=== PATIENT | male | born 1935 | race Caucasian/White ===

== ENCOUNTER 2016-10-17 13:19 | Outpatient (CLI) | payer MEDICARE, OTHER | END 2016-10-17 13:20 | disposition home or self-care (01) | DX: R73.9 Hyperglycemia, unspecified (principal); I10 Essential (primary) hypertension; E78.5 Hyperlipidemia, unspecified ==

== ENCOUNTER 2017-02-28 08:00 | Outpatient (CLI) | payer MEDICARE, OTHER | END 2017-02-28 08:01 | disposition home or self-care (01) | DX: K52.9 Noninfective gastroenteritis and colitis, unspecified (principal); D64.9 Anemia, unspecified ==

== ENCOUNTER 2017-03-04 08:00 | Outpatient (CLI) | payer MEDICARE, OTHER | END 2017-03-04 08:01 | disposition home or self-care (01) | LOC: LAB.WCP 08:00 | PROVIDERS: ATTEND Family Medicine | DX: E87.5 Hyperkalemia (principal) | CPT/HCPCS: 36415; 84132 ==

== ENCOUNTER 2017-03-06 16:07 | Outpatient (CLI) | payer MEDICARE, OTHER ==
--- NOTE | 2017-03-07 12:15 | Ultrasound Report ---
ABDOMINAL ULTRASOUND: 03/07/2017 CLINICAL INDICATION: Diarrhea, pain. TECHNIQUE: Real-time scanning was performed with franchise sales representative static images obtained. FINDINGS: The liver measures 14.2 cm. Hepatic echogenicity is normal. No intrahepatic biliary dila tation or focal parenchymal lesion is present. The common bile duct measures 4 mm. The gallbladder is normal, as is the visualized pancreas. The right kidney measures 10.3 cm, and the left kidney chitra sures 9.5 cm. No focal renal lesion or hydronephrosis is appreciated. The spleen measures 7.3 cm, a nd appears unremarkable. The abdominal aorta is normal in caliber throughout. The inferior vena cav a is unremarkable. No free fluid is present. IMPRESSION: NORMAL ABDOMINAL ULTRASOUND. JOB #: [id number] EXT JOB #:[id number]
== END 2017-03-06 16:08 | disposition home or self-care (01) ==
LOC: DI 16:07
PROVIDERS: ATTEND Family Medicine
DX: K52.9 Noninfective gastroenteritis and colitis, unspecified (principal)
CPT/HCPCS: 76700

== ENCOUNTER 2017-04-09 08:00 | Outpatient (CLI) | payer MEDICARE, OTHER ==
[2017-04-09 20:16] LABS: CALCIUM 9.1 mg/dL (8.5-10.3); CREATININE 2.2 mg/dL (0.6-1.2); POTASSIUM 5.1 mmol/L (3.5-5.0)
== END 2017-04-09 08:01 | disposition home or self-care (01) ==
LOC: LAB.WCP 08:00
PROVIDERS: ATTEND Family Medicine
DX: K52.9 Noninfective gastroenteritis and colitis, unspecified (principal); I10 Essential (primary) hypertension
CPT/HCPCS: 36415; 80048

== ENCOUNTER 2017-11-04 09:20 | Outpatient (CLI) | payer MEDICARE, OTHER ==
[2017-11-04 13:10] LABS: BASOPHILS % (AUTO) 0.6 %; EOSINOPHILS # (AUTO) 0.3 10^3/uL (0.0-0.7); EOSINOPHILS % (AUTO) 4.3 %; HGB - HEMOGLOBIN 11.3 g/dL (14.0-18.0); LYMPHOCYTES # (AUTO) 1.2 10^3/uL (1.5-3.5); LYMPHOCYTES % (AUTO) 17.6 %; MEAN CORPUSCULAR HGB CONC 33.4 g/dL (32.0-36.0); MEAN CORPUSCULAR VOLUME 98.8 fL (80.0-94.0); MEAN PLATELET VOLUME 9.9 fL (7.4-11.4); MONOCYTES # (AUTO) 0.9 10^3/uL (0.0-1.0); MONOCYTES % (AUTO) 13.4 %; NEUTROPHILS # (AUTO) 4.4 10^3/uL (1.5-6.6); NEUTROPHILS % (AUTO) 64.1 %; PLT - PLATELET COUNT 178 10^3/uL (130-450); RED BLOOD COUNT 3.42 10^6/uL (4.70-6.10); RED CELL DISTRIBUTION WIDTH 14.4 % (12.0-15.0); WHITE BLOOD COUNT 6.8 x10^3/uL (4.8-10.8)
[2017-11-04 14:13] LABS: CALCIUM 8.7 mg/dL (8.5-10.3); CREATININE 1.9 mg/dL (0.6-1.2)
[2017-11-04 14:20] LABS: HEMOGLOBIN A1C 0.46 g/dL; HEMOGLOBIN A1C % 5.7 % (4.6-6.2)
== END 2017-11-04 09:21 | disposition home or self-care (01) ==
LOC: LAB.WCP 09:20
PROVIDERS: ATTEND Family Medicine
DX: E87.5 Hyperkalemia (principal); I12.9 Hypertensive chronic kidney disease with stage 1 through stage 4 chronic kidney disease, or unspecified chronic kidney disease; N18.9 Chronic kidney disease, unspecified; R73.9 Hyperglycemia, unspecified
CPT/HCPCS: 36415; 80048; 83036; 85025

== ENCOUNTER 2017-11-07 08:56 | Outpatient (CLI) | payer MEDICARE, OTHER ==
[2017-11-07 13:21] LABS: BASOPHILS % (AUTO) 0.4 %; EOSINOPHILS # (AUTO) 0.2 10^3/uL (0.0-0.7); EOSINOPHILS % (AUTO) 3.6 %; HGB - HEMOGLOBIN 11.8 g/dL (14.0-18.0); LYMPHOCYTES % (AUTO) 15.9 %; MEAN CORPUSCULAR HEMOGLOBIN 33.1 pg (27.0-31.0); MEAN CORPUSCULAR HGB CONC 33.6 g/dL (32.0-36.0); MEAN CORPUSCULAR VOLUME 98.4 fL (80.0-94.0); MEAN PLATELET VOLUME 9.8 fL (7.4-11.4); MONOCYTES # (AUTO) 0.8 10^3/uL (0.0-1.0); MONOCYTES % (AUTO) 12.8 %; NEUTROPHILS # (AUTO) 4.3 10^3/uL (1.5-6.6); NEUTROPHILS % (AUTO) 67.3 %; PLT - PLATELET COUNT 176 10^3/uL (130-450); RED BLOOD COUNT 3.58 10^6/uL (4.70-6.10); RED CELL DISTRIBUTION WIDTH 14.5 % (12.0-15.0); WHITE BLOOD COUNT 6.4 x10^3/uL (4.8-10.8)
[2017-11-07 13:50] LABS: FERRITIN 111.4 ng/mL (23.9-336.2)
[2017-11-07 14:03] LABS: % IRON SATURATION 31 % (20-50); IRON 80 ug/dL (45-182); TOTAL IRON BINDING CAPACITY 255 ug/dL (250-450); TRANSFERRIN 182 mg/dL (180-329)
== END 2017-11-07 08:57 ==
LOC: LAB.WCP 08:56
PROVIDERS: ATTEND Family Medicine
DX: D64.9 Anemia, unspecified (principal)
CPT/HCPCS: 36415; 82607; 82728; 83540; 84466; 85025

== ENCOUNTER 2018-06-19 18:12 | Outpatient (CLI) | payer MEDICARE, OTHER ==
[2018-06-19 19:00] LABS: CALCIUM 8.4 mg/dL (8.5-10.3); CREATININE 6.6 mg/dL (0.6-1.2)
== END 2018-06-19 18:13 | disposition home or self-care (01) ==
LOC: LAB 18:12
PROVIDERS: ATTEND Family Medicine
DX: N18.9 Chronic kidney disease, unspecified (principal)
CPT/HCPCS: 36415; 80048

== ENCOUNTER 2018-06-20 09:24 | Emergency (ER) | payer MEDICARE, OTHER ==
--- NOTE | 2018-06-20 09:50 | ED Physician Documentation ---
History of Present Illness - Stated complaint Stated Complaint: SIDE PX - Additonal information Additional information: hx from pt EMR and call from PMD 83 male recent hematuria and UTI txed with augmentin then changed to doxy based on culture results creat from 1.9-4.4 and lasix was stopped urinary sx better - his making urine not on NSAIDS but now creat 6.[address] Nova spoke to nephrology Dr Partida who advised that pt come to ED for imaging - his number is pt sytates he feels fine now - no fever cough CP soa abd pain flank pain NVD bloody black BM has int had low RLQ pain but not right now Review of Systems Constitutional: reports: Fever (initially not now). denies: Chills Throat: denies: Sore throat Cardiac: denies: Chest pain / pressure Respiratory: denies: Dyspnea GI: reports: Nausea, Vomiting (initially not now). denies: Abdominal Pain Musculoskeletal: denies: Back pain Endocrine: denies: Easy bruising / bleeding Immunocompromised: denies: Immunocompromised PD PAST MEDICAL HISTORY - Past Surgical History General: Hiatal hernia repair HEENT: Cataracts - Present Medications Home Medications: Ambulatory Orders Medication Instructions Recorded Confirmed Aspirin 81 mg PO 06/20/18 06/20/18 Calcium Citrate 06/20/18 Clonidine HCl [Clonidine HCl ER] 0.1 mg PO 06/20/18 Donepezil HCl 10 mg PO 06/20/18 Furosemide 40 mg PO 06/20/18 Krill/[place]-3/Dha/Epa/Lipids 1 each PO 06/20/18 [Krill Oil 350 mg Softgel] Lisinopril 20 mg PO 06/20/18 Magnesium Oxide [Magnesium] 400 mg PO 06/20/18 Metoprolol Succinate 100 mg PO 06/20/18 Omeprazole [PriLOSEC] 20 mg PO DAILY 06/20/18 06/20/18 QUEtiapine [SEROquel] 25 mg PO QPM 06/20/18 06/20/18 Simvastatin 20 mg PO 06/20/18 Tamsulosin [Flomax] 0.4 mg PO DAILY 06/20/18 06/20/18 - Allergies Allergies/Adverse Reactions: Allergies Allergy/AdvReac Type Severity Reaction Status Date / Time No Known Drug Allergies Allergy Verified 07/23/16 23:14 - Social History Does the pt smoke?: No Smoking Status: Never smoker Does the pt drink ETOH?: Yes Does the pt have substance abuse?: No - Immunizations Immunizations are current?: No PD ED PE NORMAL - Vitals Vital signs reviewed: Yes - General General: Alert and oriented X 3 - HEENT HEENT: Atraumatic - Neck Neck: Supple, no meningeal sign - Cardiac Cardiac: RRR - Respiratory Respiratory: No respiratory distress, Clear bilaterally - Abdomen Abdomen: Soft, Non tender - Back Back: No CVA TTP - Derm Derm: Normal color - Extremities Extremities: No deformity - Neuro Neuro: Alert and oriented X 3 Results - Vitals Vitals: Vital Signs - 24 hr 06/20/18 06/20/18 06/20/18 09:52 10:30 11:30 Temperature 36.8 C Heart Rate 51 L 48 L 49 L Respiratory 21 18 15 Rate Blood Pressure 163/90 H 162/85 H 180/88 H O2 Saturation 100 100 99 06/20/18 06/20/18 06/20/18 12:30 13:30 14:30 Temperature Heart Rate 48 L 49 L 48 L Respiratory 18 20 18 Rate Blood Pressure 191/82 H 194/85 H 176/83 H O2 Saturation 99 99 98 06/20/18 15:30 Temperature Heart Rate 50 L Respiratory 18 Rate Blood Pressure 180/81 H O2 Saturation 99 Oxygen O2 Source Room air - EKG (time done) 1024 Rate: Rate (enter#) (54) Rhythm: NSR Intervals: Normal HI (short no delta wave). No: Wide QRS - Labs Labs: Laboratory Tests 06/20/18 06/20/18 06/20/18 10:30 10:30 11:25 WBC 8.1 RBC 3.01 L Hgb 10.1 L Hct 29.6 L MCV 98.2 H MCH 33.4 H MCHC 34.1 RDW 13.8 Plt Count 275 MPV 8.5 Neut # (Auto) 6.1 Lymph # (Auto) 0.8 L [place] # (Auto) 1.0 Eos # (Auto) 0.1 Baso # (Auto) 0.1 Absolute Nucleated RBC 0.00 Nucleated RBC % 0.0 Sodium 140 Potassium 5.5 H Chloride 114 H Carbon Dioxide 17 L Anion Gap 9.0 BUN 61 H Creatinine 6.6 H Estimated GFR (MDRD) 8 L Glucose 112 H Calcium 8.2 L Total Bilirubin 0.2 AST 16 ALT 15 Alkaline Phosphatase 56 Total Protein 6.0 L Albumin 2.8 L Globulin 3.2 Albumin/Globulin Ratio 0.9 L Lipase 48 Urine Color YELLOW Urine Clarity HAZY Urine pH 6.0 Ur Specific [place] [employer] 1.025 Urine Protein >=300 Urine Glucose (UA) NEGATIVE Urine Ketones NEGATIVE Urine Occult Blood LARGE H Urine Nitrite NEGATIVE Urine Bilirubin NEGATIVE Urine Urobilinogen 0.2 (NORMAL) Ur Leukocyte Esterase NEGATIVE Urine RBC TNTC H Urine WBC 6-10 H Ur Squamous Epith Cells RARE Squamous Urine Bacteria Rare Urine Casts 3-5 Hyaline Casts Ur Microscopic Review INDICATED Urine Culture Comments INDICATED - Rads (name of study) CT AP Radiology: See rad report (no stones, no hydro, bladder stranding c/w cystitis, diverticulosis, inguinal hernias, age indet L3 comp fx, ) PD MEDICAL DECISION MAKING - ED course ED course: EKG with nl QRS - will wait on labs before starting tx for hyperK labs back - creat is 6.6, but K only 5.5 and no EKG changes - no need for roxy gent meds beside kayexalate acute renal insuff - etiology unclear - no obstructive process, diuretic have been dced, no NSAIDS, bactrim etc making urine K not dangerous will d/w nephrology - [facility] with neph advice d/w Dr Partida, given to easily identifiable reversible cause there is a good chance this may worsen, recommends pt be transferred to tertiary care facility w here biopsy and dialysis if needed are available Prov [facility] no beds [facility] beds - spoke to hospitalist and nephrology there and pt is accepted in transfer - Sepsis Event Vital Signs: Vital Signs - 24 hr 06/20/18 06/20/18 06/20/18 09:52 10:30 11:30 Temperature 36.8 C Heart Rate 51 L 48 L 49 L Respiratory 21 18 15 Rate Blood Pressure 163/90 H 162/85 H 180/88 H O2 Saturation 100 100 99 06/20/18 06/20/18 06/20/18 12:30 13:30 14:30 Temperature Heart Rate 48 L 49 L 48 L Respiratory 18 20 18 Rate Blood Pressure 191/82 H 194/85 H 176/83 H O2 Saturation 99 99 98 06/20/18 15:30 Temperature Heart Rate 50 L Respiratory 18 Rate Blood Pressure 180/81 H O2 Saturation 99 Oxygen O2 Source Room air Departure - Departure Disposition: 02 Transfer Acute Care Hosp Clinical Impression: Hyperkalemia Renal failure Qualifiers: Renal failure chronicity: acute Acute renal failure type: unspecified Qualified Code(s): N17.9 - Acute kidney failure, unspecified Condition: Fair Discharge Date/Time: 06/20/18 16:07
[2018-06-20 10:41] LABS: BASOPHILS # (AUTO) 0.1 10^3/uL (0.0-0.1); BASOPHILS % (AUTO) 0.8 %; EOSINOPHILS # (AUTO) 0.1 10^3/uL (0.0-0.7); EOSINOPHILS % (AUTO) 1.8 %; HGB - HEMOGLOBIN 10.1 g/dL (14.0-18.0); LYMPHOCYTES # (AUTO) 0.8 10^3/uL (1.5-3.5); LYMPHOCYTES % (AUTO) 9.6 %; MEAN CORPUSCULAR HEMOGLOBIN 33.4 pg (27.0-31.0); MEAN CORPUSCULAR HGB CONC 34.1 g/dL (32.0-36.0); MEAN CORPUSCULAR VOLUME 98.2 fL (80.0-94.0); MEAN PLATELET VOLUME 8.5 fL (7.4-11.4); MONOCYTES % (AUTO) 11.9 %; NEUTROPHILS # (AUTO) 6.1 10^3/uL (1.5-6.6); NEUTROPHILS % (AUTO) 75.9 %; PLT - PLATELET COUNT 275 10^3/uL (130-450); RED BLOOD COUNT 3.01 10^6/uL (4.70-6.10); RED CELL DISTRIBUTION WIDTH 13.8 % (12.0-15.0); WHITE BLOOD COUNT 8.1 x10^3/uL (4.8-10.8)
--- NOTE | 2018-06-20 10:50 | CT Report ---
Reason: hematuria, creat 1.9 -> 6.6 Procedure Date: 06/20/2018 Accession Number: [id number] / [id number] Procedure: CT - Abdomen/Pelvis W/O CPT Code: FULL RESULT: EXAM: CT ABDOMEN AND PELVIS EXAM DATE: 06/20/2018 10:08 AM. CLINICAL HISTORY: Hematuria. COMPARISONS: None. TECHNIQUE: Routine helical CT imaging was performed through the abdomen and pelvis. IV contrast: . Enteric contrast: No. Reconstructions: Coronal and sagittal. In accordance with CT protocol optimization, one or more of the following dose reduction techniques were utilized for this exam: automated exposure control, adjustment of mA and/or KV based on patient size, or use of iterative reconstructive technique. FINDINGS: Lung Bases: Tiny calcified and noncalcified pulmonary nodules are seen in the lung bases measuring 2-3 mm. Solid organs: Noncontrast imaging of the solid organs demonstrates no acute findings including no nephrolithiasis or hydronephrosis. Gallbladder/Bile Ducts: Unremarkable. Peritoneal Cavity/Bowel: There is moderate predominantly sigmoid diverticulosis without evidence of diverticulitis. There is no obstruction or ileus. No free fluid or free air. The appendix is well visualized and normal. Pelvic Organs: The bladder is partly decompressed. Some minor fat stranding is seen surrounding the bladder (image 67, series 3). No significant bladder wall thickening or stones are demonstrated. A small fat-containing right inguinal hernia is seen. Trace fluid is seen in the hernia sac. Vasculature: No aneurysms or other significant abnormality. Bones: An age-indeterminate mild compression fracture deformity is seen at L3. Other: None. IMPRESSION: 1. No nephrolithiasis or hydronephrosis. 2. Minor stranding surrounding the bladder. Correlate for cystitis. 3. Moderate colonic diverticulosis without diverticulitis. 4. Small fat and fluid containing right inguinal hernia. 5. Age-indeterminate mild compression fracture at L3. RADIA
[2018-06-20 10:54] LABS: ALBUMIN 2.8 g/dL (3.2-5.5); ALBUMIN/GLOBULIN RATIO 0.9 (1.0-2.2); BILIRUBIN,TOTAL 0.2 mg/dL (0.2-1.0); CALCIUM 8.2 mg/dL (8.5-10.3); CREATININE 6.6 mg/dL (0.6-1.2)
[2018-06-20] MEDS ORDERED: SODIUM POLYSTYRENE SULFONATE 15 GM/60 ML BOTTLE PO STA (11:22)
[2018-06-20 11:39] LABS: BILIRUBIN,URINE NEGATIVE (NEGATIVE); GLUCOSE, URINE (UA) NEGATIVE (NEGATIVE); KETONES,URINE (UA) NEGATIVE (NEGATIVE); LEUKOCYTE ESTERASE, URINE NEGATIVE (NEGATIVE); NITRITE,URINE NEGATIVE (NEGATIVE); OCCULT BLOOD,URINE LARGE (NEGATIVE); PROTEIN,URINE >=300 mg/dL (NEGATIVE); UROBILINOGEN,URINE 0.2 (NORMAL) E.U./dL (NORMAL)
[2018-06-20 11:43] LABS: CLARITY,URINE HAZY (CLEAR)
[2018-06-20 12:07] LABS: BACTERIA,URINE Rare /HPF (None Seen); RBC,URINE TNTC /HPF (0-5); SQUAMOUS EPITHELIAL CELL,UR RARE Squamous (<= Few)
[2018-06-20] MEDS ORDERED: SODIUM CHLORIDE 0.9% 1,000 ML IV ONE (15:25)
[2018-06-20 15:37] VITALS: BP 180/81
== END 2018-06-20 16:07 | disposition short-term general hospital (02) ==
LOC: ED 09:24
DX: E87.5 Hyperkalemia (principal); N17.9 Acute kidney failure, unspecified; R31.9 Hematuria, unspecified; R94.31 Abnormal electrocardiogram [ECG] [EKG]; K57.30 Diverticulosis of large intestine without perforation or abscess without bleeding; K40.90 Unilateral inguinal hernia, without obstruction or gangrene, not specified as recurrent; R91.1 Solitary pulmonary nodule; Z79.82 Long term (current) use of aspirin
CPT/HCPCS: 74176; 80053; 81001; 83690; 85025; 87086; 93005; 96360; 99284; 99285; A9270; 36415; 81003

== ENCOUNTER 2018-06-20 16:05 | Outpatient (CLI) | payer MEDICARE, OTHER | END 2018-06-20 16:06 | disposition short-term general hospital (02) | LOC: EMS 16:05 | PROVIDERS: ATTEND Surgery | DX: R53.1 Weakness (principal) | CPT/HCPCS: A0425; A0426 ==

== ENCOUNTER → 2018-08-19 | Outpatient (CLI) | payer MEDICARE, OTHER ==
[2018-08-19 18:50] LABS: ALBUMIN/GLOBULIN RATIO 1.5 (1.0-2.2); BILIRUBIN,TOTAL 0.6 mg/dL (0.2-1.0); CALCIUM 9.2 mg/dL (8.5-10.3); CREATININE 3.5 mg/dL (0.6-1.2); TOTAL PROTEIN 6.6 g/dL (6.7-8.2)
== END ==
LOC: LAB.WCP 14:30
PROVIDERS: ATTEND Family Medicine
DX: N18.4 Chronic kidney disease, stage 4 (severe) (principal); E87.5 Hyperkalemia; I10 Essential (primary) hypertension
CPT/HCPCS: 36415; 80053

== ENCOUNTER 2018-10-06 08:00 | Outpatient (CLI) | payer MEDICARE, OTHER ==
[2018-10-06 13:53] LABS: ALBUMIN 3.9 g/dL (3.2-5.5); ALBUMIN/GLOBULIN RATIO 1.4 (1.0-2.2); BILIRUBIN,TOTAL 0.5 mg/dL (0.2-1.0); CALCIUM 9.1 mg/dL (8.5-10.3); CREATININE 3.3 mg/dL (0.6-1.2); TOTAL PROTEIN 6.6 g/dL (6.7-8.2)
[2018-10-06 14:09] LABS: BASOPHILS % (AUTO) 0.6 %; EOSINOPHILS # (AUTO) 0.1 10^3/uL (0.0-0.7); EOSINOPHILS % (AUTO) 1.9 %; HGB - HEMOGLOBIN 10.1 g/dL (14.0-18.0); LYMPHOCYTES # (AUTO) 0.9 10^3/uL (1.5-3.5); LYMPHOCYTES % (AUTO) 18.8 %; MEAN CORPUSCULAR HEMOGLOBIN 32.8 pg (27.0-31.0); MEAN CORPUSCULAR HGB CONC 33.8 g/dL (32.0-36.0); MEAN PLATELET VOLUME 9.5 fL (7.4-11.4); MONOCYTES # (AUTO) 0.8 10^3/uL (0.0-1.0); MONOCYTES % (AUTO) 15.5 %; NEUTROPHILS # (AUTO) 3.1 10^3/uL (1.5-6.6); NEUTROPHILS % (AUTO) 63.2 %; PLT - PLATELET COUNT 184 10^3/uL (130-450); RED BLOOD COUNT 3.08 10^6/uL (4.70-6.10); RED CELL DISTRIBUTION WIDTH 14.2 % (12.0-15.0); WHITE BLOOD COUNT 4.9 x10^3/uL (4.8-10.8)
== END 2018-10-06 23:59 | disposition home or self-care (01) ==
LOC: LAB.WCP 08:00
PROVIDERS: ATTEND Internal Medicine
DX: N18.4 Chronic kidney disease, stage 4 (severe) (principal)
CPT/HCPCS: 36415; 80053; 82306; 83970; 85025

== ENCOUNTER 2018-12-15 15:22 | Outpatient (CLI) | payer MEDICARE, OTHER ==
[2018-12-15 19:36] LABS: HEMOGLOBIN A1C 0.33 g/dL; HEMOGLOBIN A1C % 5.2 % (4.6-6.2)
[2018-12-15 19:41] LABS: CHOL/HDL RATIO 1.9 (<5.0); CHOLESTEROL 141 mg/dL; HDL CHOLESTEROL 76 mg/dL; LDL CHOLESTEROL,CALCULATED 55 mg/dL; LDL/HDL RATIO 0.7 (<3.6); VLDL CHOLESTEROL 10 mg/dL
== END 2018-12-15 15:23 | disposition home or self-care (01) ==
LOC: LAB.WCP 15:22
PROVIDERS: ATTEND Family Medicine
DX: E78.5 Hyperlipidemia, unspecified (principal); R73.9 Hyperglycemia, unspecified; F41.9 Anxiety disorder, unspecified
CPT/HCPCS: 36415; 80061; 83036; 83721; 84443

== ENCOUNTER 2019-01-19 08:57 | Outpatient (CLI) | payer MEDICARE, OTHER ==
[2019-01-19 14:18] LABS: BASOPHILS % (AUTO) 0.5 %; EOSINOPHILS # (AUTO) 0.5 10^3/uL (0.0-0.7); EOSINOPHILS % (AUTO) 7.4 %; HGB - HEMOGLOBIN 10.2 g/dL (14.0-18.0); LYMPHOCYTES # (AUTO) 0.8 10^3/uL (1.5-3.5); LYMPHOCYTES % (AUTO) 12.8 %; MEAN CORPUSCULAR HEMOGLOBIN 32.6 pg (27.0-31.0); MEAN CORPUSCULAR HGB CONC 32.7 g/dL (32.0-36.0); MEAN CORPUSCULAR VOLUME 99.8 fL (80.0-94.0); MEAN PLATELET VOLUME 9.1 fL (7.4-11.4); MONOCYTES % (AUTO) 15.9 %; NEUTROPHILS # (AUTO) 3.9 10^3/uL (1.5-6.6); NEUTROPHILS % (AUTO) 63.4 %; PLT - PLATELET COUNT 220 10^3/uL (130-450); RED BLOOD COUNT 3.14 10^6/uL (4.70-6.10); RED CELL DISTRIBUTION WIDTH 13.6 % (12.0-15.0); WHITE BLOOD COUNT 6.1 x10^3/uL (4.8-10.8)
[2019-01-19 14:58] LABS: CALCIUM 9.2 mg/dL (8.5-10.3); CREATININE 3.5 mg/dL (0.6-1.2); PHOSPHORUS 4.5 mg/dL (2.5-4.6)
== END 2019-01-19 08:58 | disposition home or self-care (01) ==
LOC: LAB.WCP 08:57
PROVIDERS: ATTEND Internal Medicine
DX: N18.4 Chronic kidney disease, stage 4 (severe) (principal)
CPT/HCPCS: 36415; 80048; 84100; 85025

== ENCOUNTER 2019-02-19 15:18 | Outpatient (CLI) | payer MEDICARE, OTHER ==
[2019-02-19 19:38] LABS: CALCIUM 8.8 mg/dL (8.5-10.3); CREATININE 2.9 mg/dL (0.6-1.2)
== END 2019-02-19 15:19 | disposition home or self-care (01) ==
LOC: LAB.WCP 15:18
PROVIDERS: ATTEND Internal Medicine
DX: N18.4 Chronic kidney disease, stage 4 (severe) (principal)
CPT/HCPCS: 36415; 80048

== ENCOUNTER 2019-03-19 10:07 | Outpatient (CLI) | payer MEDICARE, OTHER ==
[2019-03-19 12:30] LABS: BASOPHILS % (AUTO) 0.6 %; BILIRUBIN,URINE NEGATIVE (NEGATIVE); EOSINOPHILS # (AUTO) 0.2 10^3/uL (0.0-0.7); EOSINOPHILS % (AUTO) 2.5 %; GLUCOSE, URINE (UA) NEGATIVE (NEGATIVE); HGB - HEMOGLOBIN 9.6 g/dL (14.0-18.0); KETONES,URINE (UA) NEGATIVE (NEGATIVE); LEUKOCYTE ESTERASE, URINE NEGATIVE (NEGATIVE); LYMPHOCYTES % (AUTO) 14.4 %; MEAN CORPUSCULAR HEMOGLOBIN 31.5 pg (27.0-31.0); MEAN CORPUSCULAR HGB CONC 30.7 g/dL (32.0-36.0); MEAN CORPUSCULAR VOLUME 102.6 fL (80.0-94.0); MEAN PLATELET VOLUME 10.9 fL (7.4-11.4); MONOCYTES # (AUTO) 0.9 10^3/uL (0.0-1.0); MONOCYTES % (AUTO) 13.1 %; NEUTROPHILS # (AUTO) 4.8 10^3/uL (1.5-6.6); NEUTROPHILS % (AUTO) 69.1 %; NITRITE,URINE NEGATIVE (NEGATIVE); OCCULT BLOOD,URINE TRACE-INTA (NEGATIVE); PLT - PLATELET COUNT 207 10^3/uL (130-450); PROTEIN,URINE 100 mg/dL (NEGATIVE); RED BLOOD COUNT 3.05 10^6/uL (4.70-6.10); RED CELL DISTRIBUTION WIDTH 13.9 % (12.0-15.0); UROBILINOGEN,URINE 0.2 (NORMAL) E.U./dL (NORMAL); WHITE BLOOD COUNT 6.9 x10^3/uL (4.8-10.8)
[2019-03-19 12:39] LABS: CLARITY,URINE CLEAR (CLEAR); RBC,URINE None Seen /HPF (0-5); WBC CLUMPS,URINE NONE SEEN
[2019-03-19 12:40] LABS: BACTERIA,URINE None Seen /HPF (None Seen); SQUAMOUS EPITHELIAL CELL,UR NONE SEEN (<= Few)
[2019-03-19 12:49] LABS: CALCIUM 9.4 mg/dL (8.5-10.3); CREATININE 3.3 mg/dL (0.6-1.2); PHOSPHORUS 3.9 mg/dL (2.5-4.6); URIC ACID 8.4 mg/dL (2.6-7.2)
[2019-03-19 12:58] LABS: FERRITIN 81.3 ng/mL (23.9-336.2)
[2019-03-19 15:13] LABS: CREATININE,URINE 83.7 mg/dL; PROTEIN/CREATININE RATIO,URINE 1.2 (<=0.2)
== END 2019-03-19 10:08 | disposition home or self-care (01) ==
LOC: LAB.WCP 10:07
PROVIDERS: ATTEND Internal Medicine
DX: N18.4 Chronic kidney disease, stage 4 (severe) (principal)
CPT/HCPCS: 36415; 80048; 81001; 82306; 82570; 82728; 83970; 84100; 84156; 84550; 85025; 87086

== ENCOUNTER 2019-06-15 08:00 | Outpatient (CLI) | payer MEDICARE, OTHER ==
[2019-06-15 12:13] LABS: BASOPHILS % (AUTO) 0.7 %; EOSINOPHILS # (AUTO) 0.2 10^3/uL (0.0-0.7); EOSINOPHILS % (AUTO) 3.7 %; HGB - HEMOGLOBIN 9.9 g/dL (14.0-18.0); LYMPHOCYTES # (AUTO) 1.1 10^3/uL (1.5-3.5); LYMPHOCYTES % (AUTO) 20.4 %; MEAN CORPUSCULAR HEMOGLOBIN 32.9 pg (27.0-31.0); MEAN CORPUSCULAR HGB CONC 32.4 g/dL (32.0-36.0); MEAN CORPUSCULAR VOLUME 101.7 fL (80.0-94.0); MONOCYTES # (AUTO) 0.9 10^3/uL (0.0-1.0); MONOCYTES % (AUTO) 15.8 %; NEUTROPHILS # (AUTO) 3.2 10^3/uL (1.5-6.6); NEUTROPHILS % (AUTO) 59.2 %; PLT - PLATELET COUNT 209 10^3/uL (130-450); RED BLOOD COUNT 3.01 10^6/uL (4.70-6.10); RED CELL DISTRIBUTION WIDTH 14.6 % (12.0-15.0); WHITE BLOOD COUNT 5.4 x10^3/uL (4.8-10.8)
[2019-06-15 12:27] LABS: CALCIUM 9.2 mg/dL (8.5-10.3); CREATININE 3.2 mg/dL (0.6-1.2); PHOSPHORUS 3.9 mg/dL (2.5-4.6)
== END 2019-06-15 23:59 | disposition home or self-care (01) ==
LOC: LAB.WCP 08:00
PROVIDERS: ATTEND Internal Medicine
DX: N18.4 Chronic kidney disease, stage 4 (severe) (principal)
CPT/HCPCS: 36415; 80048; 84100; 85025